=== PATIENT | female | born 1975 | race Caucasian/White ===

== ENCOUNTER 2017-07-17 06:28 | Day surgery (SDC) | payer MEDICARE, MEDICAID ==
[2017-07-17] MEDS ORDERED: Propofol 200 MG/20 ML SDV IV ONE (06:29)
[2017-07-17] MEDS ORDERED: Ketorolac 30 MG/ML SDV IVPUSH ONE (06:29)
[2017-07-17] MEDS ORDERED: Sodium Chloride 0.9% 10 ML Syringe IV ONE (06:29)
[2017-07-17] MEDS ORDERED: Dexamethasone 4 MG/ML SDV IV ONE (06:29)
[2017-07-17] MEDS ORDERED: fentaNYL 100 MCG/2 ML SDV IV ONE (06:29)
[2017-07-17] MEDS ORDERED: Midazolam 1 MG/ML 2 ML SDV IV ONE (06:29)
[2017-07-17] MEDS ORDERED: Ondansetron 4 MG/2 ML SDV IV ONE (06:29)
[2017-07-17] MEDS ORDERED: ePHEDrine 50 MG/ML SDV IV ONE (06:29)
[2017-07-17] MEDS ORDERED: Acetaminophen 325 MG Tab PO PRN (07:33)
[2017-07-17] MEDS ORDERED: Ondansetron 4 MG/2 ML SDV IVPUSH PRN (07:33)
[2017-07-17] MEDS ORDERED: Lactated Ringers 1,000 ML IV SCH (08:00)
[2017-07-17] MEDS ORDERED: ceFAZolin 2 GM in Premix Bag 1 BAG IV ONE (08:55)
[2017-07-17] MEDS ORDERED: Non-Formulary Medication 1 Each (Lorazepam [Ativan] 1 MG) PO SCH (09:00)
[2017-07-17] MEDS ORDERED: Non-Formulary Medication 1 Each (Metoprolol Tartrate [Metoprolol Tartrate] 50 MG) PO SCH (09:00)
--- NOTE | 2017-07-17 11:09 | US ---
CLINICAL HISTORY: 42-year-old female with abnormal uterine bleeding and dysmenorrhea (exam performed operating room this "mentally disabled" female patient of Drs. Alex and Talon). INTERPRETATION: Midline uterus normal configuration and size with smooth contour mildly retroverted w ith an abnormally thickened (13 mm) central endometrial "stripe" (trace of fluid in the endometrial c anal). No sign of intra or extrauterine gestational sac. No endometrial polypoid mass lesion but val ral nabothian cysts in the cervix. No myometrial fibroid mass lesions. Uterus measures 7.6 cm in length x 4.1 cm W x 3.4 cm AP diameter. Both ovaries appear to have cysts (largest cyst on the left measures 3.0 x 4.4 x 4.0 cm with single s eptation while the contralateral left ovary has a 1.0 x 1.6 x 0.9 cm cyst). No extraovarian adnexal mass lesion or free fluid in the cul-de-sac. Larger poorly defined left ovary measures 4.5 cm L x 4.0 cm W x 2.6 cm AP diameter. Smaller left ovar y measures 2.7 cm L x 1.5 cm W x 3.3 cm AP diameter. CONCLUSION: Small uterus with prominent endometrium and trace of fluid in the endometrial canal. (Nab othian cysts) No sign of myometrial fibroid mass lesion, endometrial polyp, or intra/extrauterine gestational sac, i.e., no IUP. Large benign-appearing cyst left ovary with a solitary septation. Tiny solitary cyst contralateral ri ght ovary.
[2017-07-17 11:52] VITALS: BP 111/79
--- NOTE | 2017-07-17 12:03 | OR ---
DATE: 07/17/2017 PREOPERATIVE DIAGNOSES: 1. Irregular bleeding. 2. Developmental delayed woman. 3. Increased body mass index. POSTOPERATIVE DIAGNOSES: 1. Irregular bleeding. 2. Developmental delayed woman. 3. Increased body mass index. 4. A 4 cm left ovarian cyst and 2 cm right ovarian cyst versus follicle. 5. Thickened endometrial lining. PROCEDURES: 1. Exam under anesthesia. 2. Pap smear. 3. Hysteroscopy with dilation and curettage. 4. Pelvic ultrasound. 5. Lab draw for FSH, LH, and estradiol. ESTIMATED BLOOD LOSS: 3 mL. FLUIDS: Crystalloid/LR and 200 mL of normal saline were used to insufflate the uterus, and 200 mL of fluid was out. COMPLICATIONS: None. DRAINS: None. PATHOLOGY: 1. Uterine curettings sent. 2. Pap smear sent. FINDINGS: Ultrasound showed a 4 cm left ovarian cyst and a 2-cm follicle/cyst on the right ovary. Endometrial lining; 1.26 cm thick lining noted on hysteroscopy. Moderate amount of tissue removed with dilation and curettage. DETAILS: The patient was taken back to the operating room with IV running. She was placed supine on the operating room table. After adequate general anesthesia was obtained, she was placed in dorsal lithotomy position. Pap smear was accomplished. Then, a pelvic ultrasound was accomplished. Then, she was prepped and draped in the usual sterile fashion in the dorsal lithotomy position, and the cervix was grasped with a single-tooth tenaculum, and the cervix was dilated to a #9 Hegar dilator. Then, a hysteroscope was placed. Intrauterine cavity was inspected. There was some thickened tissue noted. The hysteroscope was removed. Then, curettage to the entire endometrial cavity occurred with a short curette until gritty texture was noted. Tissue was sent to Pathology. The tenaculum and speculum were removed. Excellent hemostasis was noted. Bimanual examination reveals no masses, fullness, or other abnormalities noted. Breast exam was accomplished. No retractions, lesions, or nipple discharge noted. Axilla: No lymphadenopathy noted. Lungs: Clear to auscultation. No wheezing, rhonchi, or rales noted. Cardiovascular: Regular rate and rhythm without murmurs. Abdomen: Soft. Bowel sounds good. No rigidity, rebound, tenderness, or peritoneal signs noted. No hepatosplenomegaly. Extremities: No edema or erythema noted. The patient received 2 g of Ancef IV. All sponge, needle, and instrument counts were correct by the nurse in attendance x2. The patient was taken to PACU awake in stable condition. The patient tolerated the procedure well. [facility] /[id number]
== END 2017-07-17 11:20 | disposition home or self-care (01) ==
LOC: DL.SDS 06:28
PROVIDERS: ATTEND Obstetrics & Gynecology
DX: N85.01 Benign endometrial hyperplasia (principal); K21.9 Gastro-esophageal reflux disease without esophagitis; F41.9 Anxiety disorder, unspecified; F31.9 Bipolar disorder, unspecified; Z91.012 Allergy to eggs; Z91.09 Other allergy status, other than to drugs and biological substances; Z79.899 Other long term (current) drug therapy
CPT/HCPCS: 00940; 36415; 58558; 76830; 76857; 81025; 82670; 83001; 83002; J0690; J1100; J1885; J2250; J2405; J2704; J3010; J7050; J7120; 88305

== ENCOUNTER 2017-08-21 06:21 | Day surgery (SDC) | payer MEDICARE, MEDICAID ==
[2017-08-21] MEDS ORDERED: Propofol 200 MG/20 ML SDV IV ONE (06:22)
[2017-08-21] MEDS ORDERED: Ketorolac 30 MG/ML SDV IVPUSH ONE (06:22)
[2017-08-21] MEDS ORDERED: fentaNYL 100 MCG/2 ML SDV IV ONE (06:22)
[2017-08-21] MEDS ORDERED: Midazolam 1 MG/ML 2 ML SDV IV ONE (06:22)
[2017-08-21] MEDS ORDERED: Ondansetron 4 MG/2 ML SDV IV ONE (06:22)
[2017-08-21] MEDS ORDERED: Dexamethasone 4 MG/ML SDV IV ONE (06:22)
[2017-08-21] MEDS ORDERED: Lactated Ringers 1,000 ML IV SCH (07:00)
[2017-08-21] MEDS ORDERED: Ferric Subsulfate Topical Soln 8 GM (8 ML) Bottle ONE ×2 (07:28→07:29)
[2017-08-21] MEDS ORDERED: Silver Nitrate Applicator Each ONE (07:29)
[2017-08-21] MEDS ORDERED: Ketorolac 30 MG/ML SDV IVPUSH SCH (08:00)
[2017-08-21] MEDS ORDERED: Ondansetron 4 MG/2 ML SDV IVPUSH PRN (08:00)
[2017-08-21] MEDS ORDERED: Acetaminophen 325 MG Tab PO PRN (08:00)
[2017-08-21] MEDS ORDERED: Silver Nitrate Applicator Each TOP ONE (08:33)
[2017-08-21 10:29] VITALS: BP 99/69
--- NOTE | 2017-08-21 15:34 | OR ---
DATE: 08/21/2017 PREOPERATIVE DIAGNOSES: 1. Endometrial hyperplasia, complex. 2. Abnormal uterine bleeding. POSTOPERATIVE DIAGNOSES: 1. Endometrial hyperplasia, complex. 2. Abnormal uterine bleeding. PROCEDURE: Mirena IUD placement. ESTIMATED BLOOD LOSS: None. COMPLICATIONS: None. FLUIDS: Crystalloid/LR. DRAINS: None. PATHOLOGY: None. ANESTHESIA: General with LMA. FINDINGS: Normal cervix, vagina. Uterus sounded to 9 cm. DESCRIPTION OF PROCEDURE: The patient was taken back to the operating room with an IV running. She was placed supine on the operating table. After adequate general anesthesia was obtained, she was prepped and draped in the usual sterile fashion in the dorsal lithotomy position. A speculum was placed into the vagina. The cervix was grasped on the anterior lip with a single-tooth tenaculum. It was cleansed with Betadine. The uterus was then sounded to 9 cm. The Mirena IUD was then placed per back office medical assistant's instructions. The strings were cut 4 cm from the cervical os. The single-tooth tenaculum was removed. Excellent hemostasis was noted. We did have slight bleeding from tenaculum sites, so silver nitrate was used to cauterize this. There was slight bleeding from the introitus posteriorly, so silver nitrate was placed and it stopped the bleeding from the small abrasion. The patient tolerated the procedure quite well. All sponges, needle, and instrument counts were correct by the nurse in attendance x2. The patient was taken to PACU awake in stable condition. [facility] /[id number]
== END 2017-08-21 10:20 | disposition home or self-care (01) ==
LOC: DL.SDS 06:21
PROVIDERS: ATTEND Obstetrics & Gynecology
DX: N85.01 Benign endometrial hyperplasia (principal); K21.9 Gastro-esophageal reflux disease without esophagitis; F41.9 Anxiety disorder, unspecified; F31.9 Bipolar disorder, unspecified; Z79.899 Other long term (current) drug therapy
CPT/HCPCS: 00940; 58300; J1100; J1885; J2250; J2405; J2704; J3010; J7120

== ENCOUNTER 2022-11-21 09:54 | Day surgery (SDC) | payer MEDICARE, MEDICAID ==
[2022-11-21] MEDS ORDERED: Sodium Chloride 0.9% 10 ML Syringe FLUSH PRN (10:45)
[2022-11-21] MEDS ORDERED: Ondansetron 4 MG/2 ML SDV IVPUSH PRN (10:45)
[2022-11-21] MEDS ORDERED: ceFAZolin 2 GM Vial IVPUSH ONE (10:45)
[2022-11-21] MEDS ORDERED: Lactated Ringers 1,000 ML IV SCH (10:45)
[2022-11-21] MEDS ORDERED: Ketorolac 30 MG/ML SDV IM SCH (10:45)
[2022-11-21] MEDS ORDERED: Acetaminophen 325 MG Tab PO PRN (10:45)
[2022-11-21] MEDS ORDERED: Sodium Chloride 0.9% 50 ML ONE (10:56)
[2022-11-21] MEDS ORDERED: SODIUM CHLORIDE 0.9% IV ONE (10:56)
[2022-11-21 13:49] VITALS: BP 105/76; PULSE 70
[2022-11-21] MEDS ORDERED: Sodium Chloride 0.9% 10 ML Syringe FLUSH SCH (21:00)
== END 2022-11-21 13:15 | disposition home or self-care (01) ==
LOC: DL.SDS 09:54
PROVIDERS: ATTEND Obstetrics & Gynecology
DX: Z30.430 Encounter for insertion of intrauterine contraceptive device (principal); N85.8 Other specified noninflammatory disorders of uterus; N18.9 Chronic kidney disease, unspecified; R73.01 Impaired fasting glucose; F31.60 Bipolar disorder, current episode mixed, unspecified; R39.81 Functional urinary incontinence; K21.9 Gastro-esophageal reflux disease without esophagitis; I10 Essential (primary) hypertension; E78.5 Hyperlipidemia, unspecified; F41.9 Anxiety disorder, unspecified; Z87.42 Personal history of other diseases of the female genital tract; Z79.899 Other long term (current) drug therapy
CPT/HCPCS: 00940; 36415; 58300; 58558; 84703; 88305; J0690; J3490; J7120

== ENCOUNTER 2023-06-02 08:29 | Emergency (ER) | payer MEDICARE, MEDICAID ==
[2023-06-02 10:29] VITALS: BP 113/89; PULSE 78
== END 2023-06-02 09:58 | disposition other institution (70) ==
LOC: DL.ED 08:29
DX: M79.604 Pain in right leg (principal); I10 Essential (primary) hypertension; E78.00 Pure hypercholesterolemia, unspecified; E66.9 Obesity, unspecified; Z91.012 Allergy to eggs; Z91.048 Other nonmedicinal substance allergy status; Z79.899 Other long term (current) drug therapy; Z68.24 Body mass index [BMI] 24.0-24.9, adult
CPT/HCPCS: 72192; 73700; 99283; 99284